=== PATIENT | female | born 1945 | race Caucasian/White ===

== ENCOUNTER 2019-05-21 06:04 | Inpatient (IN) | payer MEDICARE, OTHER, SELFPAY ==
[2019-05-13 12:43] VITALS: BMI 29.9
[2019-05-21] VITALS (16 sets, daily range): BP systolic 93–152; BP diastolic 56–75; PULSE 58–72; RESP 9–97; TEMP 36.2–36.7; O2SAT 11–100; BMI 29.9
--- NOTE | 2019-05-21 | DI.RAD.S_ITS ---
PROCEDURE: [id number] W PEL IF PERFORMED INDICATIONS: TOTAL ANTERIOR HIP TECHNIQUE: AP pelvis with lateral view(s) of the left hip(s). COMPARISON: None. FINDINGS: 4 spot fluoroscopic intraoperative images demonstrating expected alignment of left hip arthroplasty. Dictated by: Kenton Dumont M.D. on 05/21/2019 at 11:22 Approved by: Kenton Dumont M.D. on 05/21/2019 at 11:23
--- NOTE | 2019-05-21 06:50 | DI.RAD.S_ITS ---
PROCEDURE: XR HIP W PEL IF DONE LT 2V INDICATIONS: post operative total left hip TECHNIQUE: AP pelvis with lateral view(s) of the left hip(s). COMPARISON: [facility], , [id number] W PEL IF PERFORMED, 05/21/2019, 10:03. FINDINGS: Bones: No fractures or dislocations. Pelvic ring appears intact. No suspicious bony lesions. Soft tissues: The visualized bowel gas pattern is normal. No suspicious soft tissue calcifications. IMPRESSION: Expected postoperative appearance of left hip arthroplasty. Dictated by: Kenton Dumont M.D. on 05/21/2019 at 12:59 Approved by: Kenton Dumont M.D. on 05/21/2019 at 12:59
[2019-05-21] MEDS: LACTATED RINGERS 1,000 ML 42 ML IV ×2 (07:05→09:14)
[2019-05-21] MEDS: VANCOMYCIN 1,000 MG/200 ML PIGGYBACK 200 MG IV (07:06)
[2019-05-21] MEDS: PREGABALIN 75 MG CAPSULE PO (07:09)
[2019-05-21] MEDS: ACETAMINOPHEN 325 MG TABLET 975 MG PO ×3 (07:10→20:54)
--- NOTE | 2019-05-21 07:25 | P.OP_ITS ---
Operative Date/Time/Diagnoses Date of procedure: 05/21/19 Time of procedure: 07:52 Pre-op diagnosis: left hip OA Post-op diagnosis: same Procedure & Clinicians Procedure: Left total hip arthroplasty anterior approach Same procedure as scheduled: Yes Indications: The patient has had progressively worsening left hip pain with radiographic changes consistent with arthritis. Non-operative management has failed and the patient has requested total hip replacement. The risks, benefits and alternatives to surgery were discussed with the patient prior to proceeding. Risks discussed included, but were not limited to, failure to relieve pain, leg length discrepancy, dislocation, stiffness, infection, nerve damage, deep venous thrombosis, pulmonary embolism, stroke, coma, heart attack, permanent paralysis and , as well as the potential need for eventual revision of the prosthetic. Surgeon: Brie Piña Marketing Research Intern: Jessica Contreras Anesthesia Type: General and Spinal Operative Notes Findings: Severe left hip osteoarthritis, good stability, adequate bone Closure Type: primary Specimen(s): none sent Prosthetic devices, grafts, tissues, transplants, or devices: Piña and Nephew 48 R3 cup, anthology standard offset size 3, 32 by -3, one screw 15 mm Estimated Blood Loss (mL): 250 Blood products transfused: none Procedure in detail: The patient was brought to the operating room. Patient was carefully positioned in the supine position. Time-out was performed and antibiotics were given. Anesthesia was induced. She was positioned in the on the table in order to allow hyperextension of the hip. The left lower extremity was prepped and draped in a standard sterile fashion. An anterior left hip incision was made 1 fingerbreadth lateral to the anterior superior iliac spine and extended distally towards the greater trochanter. Dissection was carried out through skin and subcutaneous tissues. The skin and subcutaneous tissues were carefully injected with Lidocaine with epi. Superficial hemostasis was achieved. The fascia over the tensor fascia norma was defined and incised with a knife. Two Allis clamps were used to grasp the fascia. Tensor fascia norma was retracted laterally. A gelpi retractor was placed. Dissection was carried out down along the neck. The circumflex vessels were carefully identified and cauterized with the Aqua Mantis. There was good visualization of the femoral neck. A Cobra was placed superior to the neck and the gluteus fibers were carefully stripped from that superior aspect of the capsule. A 2nd retractor was placed along the inferior aspect of the neck. The rectus insertion along the capsule was partially released. A 3rd retractor that was then gently placed over the rim of the acetabulum under the rectus. Capsule was carefully incised and released from the intertrochanteric line circumferentially superior to the mid sagittal line and inferiorly to the mid sagittal line until the lesser trochanter was palpable. A tag stitch was placed both in the superior and inferior limb of the capsular insertion. Along the acetabulum capsule was also released up to the mid sagittal 12:00 position. A portion of the labrum was resected. A saw was used to perform an osteotomy at the level of the intertrochanteric line and the junction of the superior femoral neck leaving approximately 1 finger breath of residual inferior neck above the lesser trochanter. A 2nd cut was made along the femoral neck at the base of the head and a napkin ring of neck was removed. Corkscrew was placed in the femoral head and the head was removed without difficulty. Retractors were then repositioned around the acetabulum. Residual labrum was resected and additional osteophytes were removed. A reamer that was 4 mm below the templated size was placed by hand in the acetabulum and it was reamed to centralize the acetabulum. It was then reamed up to 2 under the templated size and fluoroscopy was brought in to confirm the position of the reaming and depth of reaming. I reamed 1 under the anticipated size. She had dense bone. A trial cup was placed and noted that it was appropriately sized and fluoroscopy confirmed position and depth. The component was open and inserted without difficulty fluoroscopic imaging was used to confirm that the cup had been adequately seated and was well positioned. The cup was meticulously tested and noted to be stable. It was further stabilized with a single screw. Neutral poly liner was placed. The cup was tested and noted to be stable. Attention was then directed to the femur. The femur was gently hyperextended additional capsular release was performed as needed in order to allow adequate visualization of the proximal femur with elevation of the femur. Patient was placed in a hyperextended slightly adducted position with maximum external rotation. Box osteotome was used to check for any residual neck as well as sclerotic bone along the trochanter. [place] pepper was placed in the femur. Additional broaching was performed. Canal finder was used to determine the alignment of the canal and position. Size 1 broach was placed. The canal was then appropriately broached up to the templated size as long as there was adequate stability of the broach and serial advancement of the broach without excessive impingement. Specific attention was directed at avoiding varus attempting to direct the distal aspect of the broach more anteriorly and avoiding excessive anteversion. Trial reduction showed acceptable range of motion, good stability, no posterior impingement, adventist of leg length and appropriate lateral shuck. I also hyperflexed the hip and checked that there was no impingement anteriorly and there was good stability with flexion, adduction and internal rotation. Final neutral poly was placed without difficulty. Marcaine and Exparel were injected. The stem was placed without difficulty. Repeat trial reduction and x-ray showed acceptable overall position, length, and no evidence of the femoral fracture. Final head was placed. Wound was meticulously irrigated with normal saline. The hip was reduced and additional Exparel and Marcaine were injected. The capsule was closed with interrupted nonabsorbable sutures. The fascia of the tensor was closed with interrupted and running Vicryl. No drain was placed. Any tensor fascia norma muscle that appeared to be contused or injured which was a minimal amount was carefully resected. Capsule around the tensor was injected with Exparel and Marcaine. The skin was closed with barbed stitches for the subcutaneous tissue and skin. We also used surgical glue. The wound was dressed sterilely. Brief Betadine soak was also used and was meticulously irrigated with normal saline. Patient was transferred to recovery room in satisfactory con dition. Complications: none Post-operative Condition: stable Disposition: Acute Care Plan for aftercare: The patient will be maintained on a standard total hip replacement protocol with weight bearing as tolerated and anterior hip precautions. The patient will receive Aspirin and sequential compression devices for DVT prophylaxis. The patient will be discharged home when safe for the home environment.
--- NOTE | 2019-05-21 07:25 | PM.PREOP ---
Pre-operative Note Interval Note History & Physical reviewed/Exam performed by Physician: Yes Changes to H&P: No
[2019-05-21] MEDS: CELECOXIB 200 MG CAPSULE PO (07:34)
[2019-05-21] MEDS: FAMOTIDINE 20 MG/50 ML PIGGYBACK 200 MG IV (07:34)
[2019-05-21] MEDS: CEFAZOLIN 2 GM/100 ML FROZ.PIGGY IV ×2 (07:57→16:21)
[2019-05-21] MEDS: TRANEXAMIC ACID 1,000 MG VIAL 1000 MG INJ ×2 (08:20→10:25)
--- NOTE | 2019-05-21 08:38 | SUR.OPER ---
Head on pillow. Supine on hana table with bilateral legs in padded hana table boots attached to the hana table armature, bilateral leg secured in traction. . leftarm padded and across chest, secured with tape over sheet, right arm secured on padded armboard at less than 90 degree abduction
[2019-05-21] MEDS: BUPIVACAINE 0.25% W/ EPI 30 ML VIAL 60 ML INJ (08:58)
[2019-05-21] MEDS: BUPIVACAINE LIPOSOME 266 MG/20 ML VIAL INJ (08:58)
[2019-05-21] MEDS: SODIUM CHLORIDE IRRIG SOLUTION 250 ML, POVIDONE-IODINE SPONGE STICKS 1 APPLIC IRR (09:01)
--- NOTE | 2019-05-21 12:29 | SUR.PHASEI ---
Pt transferred to room 228. Updated given to Tomer Gonzalez. VSS, denies pain.
--- NOTE | 2019-05-21 13:16 | PC.NURSE ---
Pt to room 218 via bed from PACU. Pt is awake, alert, and oriented x 3. Denies pain or nausea. Ate her whole lunch during her admission process. Pt oriented to room, call light, tv controls and bed controls. Reminded Pt not to get up without assistance. Bed alarm on for safety. Pt denies needs at this time.
[2019-05-21] MEDS: LACTATED RINGERS 1,000 ML 125 ML IV (13:18)
[2019-05-21] MEDS: INFLUENZA VACCINE 0.5 ML SYRINGE IM (16:33)
--- NOTE | 2019-05-21 16:50 | PT.IIE ---
Current Diagnoses Unilateral primary osteoarthritis, left hip (05/21/19) Surgery Performed Operation Date: 05/21/19 07:45 Actual Procedures p Total Hip Arthroplasty/Anterior Approach(Left) - Brie Piña MD Surgical History (Last Updated 05/13/19 @ 13:18 by Kelly Macedo RN) History of total right hip arthroplasty (Acute 06/18/07) Hx of bilateral cataract extraction (Acute) Medical History (Last Updated 05/13/19 @ 13:33 by Kelly Macedo RN) BCC (basal cell carcinoma) (Acute) Calcinosis (Acute) CREST syndrome (Acute) Depression (Acute) Easy bruisability (Acute) Former smoker (Acute) Fragile skin (Acute) Fuchs' corneal dystrophy (Acute) Raynaud's phenomenon (Acute) Rotator cuff tear, left (Acute) Vaginitis (Acute) Physical Therapy Inpatient Evaluation/Re-Eval M1 PT/OT-IP Prior Functional Status Start: 05/21/19 16:19 Freq: NEEDED Status: Active Protocol: Document 05/21/19 16:19 NFW (Rec: 05/21/19 16:50 NFW [id number]) Medical Review Prior Functional Status Medical History Reviewed Yes Communication Pleasant, answered all questions appropriately. A little groggy but able to proceed with treatment. Mobility and Gait Prior to surgery patient ambulated with a walking stick on the left side. Overall walking distance was limited to walking as needed. Activities of Daily Living and IADL's Patient required assistance in dressing with socks, underwear and tying shoes prior to surgery. She does have a sock assist and knows how to use. In the shower she would need some assist with washing the bottom of her feet . Prior Functional Level (Other details) Patient was able to cook, do laundry and drive as needed. Social History Household Members spouse Living Arrangements House Number of Floors (Floors) One Floor Number of Stairs To Enter/Railing? Patient has three series of 2- step stairs to enter her home (no handrails) or patient can walk on a gravel path around the house to the back door. Within the home she has two steps down to get to the master bedroom and no handrails. Home Environment High Toilet,Walk in Shower Home Equipment Front Wheel Walker,Sock Aid, Grab Bars Near Toilet,Grab Bars In Shower Employment Status Retired M2 PT-IP Current Condition Start: 05/21/19 16:19 Freq: NEEDED Status: Active Protocol: Document 05/21/19 16:19 NFW (Rec: 05/21/19 16:50 NFW [id number]) Physical Therapy Current Condition Current Condition Evaluation Date 05/21/19 Treatment Diagnosis s/p Left BRIAN, anterior approach secondary to OA Precautions Anterior Hip Precautions No Hip Extension,No Hip External Rotation Weight Bearing Status Weight Bearing Status Full Weight Bearing M3 PT-IP Subjective Start: 05/21/19 16:19 Freq: NEEDED Status: Active Protocol: Document 05/21/19 16:19 NFW (Rec: 05/21/19 16:50 NFW [id number]) Subjective Physical Therapy Visit Type Type Initial Evaluation Visit Start Time 15:20 Visit Stop Time 16:18 Total Visit Minutes 58 Notes and best friend present during treatment. Number of SAP DIRECTOR Visits 0 Physical Therapy Visit Comments Patient Comments Anxious to start therapy. Has need to use the restroom. Patient Goals Return home with . Therapy Pain Assessment Pain When Pain Assessed After Treatment M4 PT-IP Mobility and Gait Start: 05/21/19 16:19 Freq: NEEDED Status: Active Protocol: Document 05/21/19 16:19 NFW (Rec: 05/21/19 16:50 NF [id number]) PT-Bed Mobility Assessment Supine to Sit Supine to Sit Standby Assistance,1 Person Assistance Sit to Supine Sit to Supine Minimal Assistance,1 Person Assistance Scooting Scooting to Edge of Bed Independent Scooting Up and Down in Bed Independent PT-Transfer Assessment Sit to and From Stand Sit to and from Stand Contact Guard Assistance,1 Person Assistance Equipment Transfer Assistive Device Gait Belt,Front Wheeled Walker Orthotic/Prosthetic Devices or Brace: No Transfers Transfer Destination Bed,Chair,Toilet Transfer Ability Level of Assist Minimal Assistance,1 Person Assistance Comments Mobility Comments Patient using good form with sitting up from bed and scooting to EOB. In returning to bed used gait belt around left foot, the other end patient held in left hand to assist in lifting leg. Cuing required for proper technique between sitting and standing. Overall, performed very well once instruction provided. Gait Assessment Gait Gait Assistance Required: Contact Guard Assist,1 Person Assist Distance (Feet) 200 Able to Maintain Weight Bearing Status Yes During Gait Assistive Devices Assistive Device Gait Belt,Front Wheeled Walker Orthotic/Prosthetic Devices or Brace: Yes Gait Deviations General Gait Pattern Decreased Stride Length,Flexed Trunk,Step-to Gait Factors Limiting Gait Function Factors Limiting Gait Function Abnormal Tonal Influences, Decreased Activity Tolerance, Decreased Sensation,Decreased Strength,Limited Range of Motion,Pain,Poor Balance Comments Gait Comments Patient initially ambulated with step to gait but with cuing able to advance with normal step through gait pattern. Also, able to correct overall posture in ambulation. Trial of use of SPC which could be used when patient needs to go up and down the two steps in her house with or post. Overall, did well with SPC for short distances. M5 PT-IP Objective Assessments Start: 05/21/19 16:19 Freq: NEEDED Status: Active Protocol: Document 05/21/19 16:19 NFW (Rec: 05/21/19 16:50 NF [id number]) Orientation Orientation/Cognition Level of Alertness Alert Orientation Name,Birthday,Date,Place, Situation Language Function Ability No Deficits Noted Safety Awareness Understands Safety Issues Memory Description No Deficits Noted Strength Upper Extremity Strength Assessment Within Functional Limits Muscle Tone Muscle Tone WNL Yes M6 PT-IP Treatment Start: 05/21/19 16:19 Freq: NEEDED Status: Active Protocol: Document 05/21/19 16:19 NFW (Rec: 05/21/19 16:50 NF [id number]) Physical Therapy Treatment Exercises Exercises Ankle Pumps,Gluteal Sets,Quad Sets,Heel Slides Education Education Provided Precautions,Post-Op Packet Other Treatments Other Treatment Performed Walked to bathroom, back out to sink, able to perform some grooming with equal WB LE. M7 PT-IP Assessment and Plan Start: 05/21/19 16:19 Freq: NEEDED Status: Active Protocol: Document 05/21/19 16:19 NFW (Rec: 05/21/19 16:50 NF [id number]) PT Summary Assessment and Plan Potential Rehabilitation Potential Excellent Status of Condition at Evaluation Evolving Summary Impairments Pain,ROM,Strength,Balance, Coordination,Sensation,Tone, Bed Mobility,Transfers,Gait, Activity Tolerance Progress Towards Goals Progressing Toward Goals Assessment Summary Patient s/p anterior BRIAN on the left with some residual discomfort around the left hip . Presenting with functional strength LLE and ability to ambulate 200' with FWW. Requires cuing for proper gait pattern and could benefit from some balance exercise or testing. Patient moves quickly and needs pacing. Goals Bed Mobility Goal Independent Transfer Goal Independent Gait Goal Independent,Front Wheel Walker Gait Distance 500 Other Goals Ability to safely ascend and descend two steps either with walking stick and or SPC and . Days to Meet Goals 2 Frequency of Treatment Frequency Of Treatment Twice a Day Treatment Plan Physical Therapy Treatment Plan Bed Mobility Training,Transfer Training,Gait Training, Therapeutic Exercise,Balance Retraining,Post Op Education, Discharge Planning, Coordination Retraining Other Recommendations and Next Treatment Steps with SPC? Focus Recommendations To Nursing Amount of Assist Needed 1 Person Assist Discharge Recommendations PT Discharge Recommendations Home with Assistance
[2019-05-21] MEDS: DOCUSATE 100 MG CAPSULE PO (20:54)
[2019-05-21] MEDS: ASPIRIN EC 81 MG TABLET PO (20:54)
[2019-05-22] MEDS: CEFAZOLIN 2 GM/100 ML FROZ.PIGGY IV (00:01)
[2019-05-22 05:25] VITALS: BP 128/71; PULSE 65; RESP 18; TEMP 36.5; O2SAT 98
--- NOTE | 2019-05-22 06:17 | PC.NURSE ---
Pt reports pain in left hip tolerable overnight rates 3-4/10. CMS intact. Pt does report left thigh muscle feels heavy. Left extremity warm, <2 sec capillary refill, PP present. No tenderness to calf when lightly palpated. Denies need for pain medication. Ambu to BR mult times during night, stable with SBA. Tolerating PO intake overnight, IVF stopped per order. Anticipate discharge today.
[2019-05-22 06:18] LABS: Hematocrit 33.9 % (36-46); Hemoglobin 11.3 g/dL (12.0-16.0)
[2019-05-22 08:05] VITALS: BP 115/65; PULSE 60; RESP 16; TEMP 36.4; O2SAT 96
--- NOTE | 2019-05-22 08:42 | PM.DS.1 ---
History of Present Illness History of Present Illness Date Patient Seen: 05/22/19 Time Patient Seen: 08:42 Chief complaint: [id number] Narrative: Hospital day 2, postop day 1 following left anterior total hip arthroplasty by Dr. Piña. Patient is a main stable postoperatively. Patient doing well. Taking only Tylenol for pain. She has been up and ambulating to bathroom. Did work with physical therapy yesterday who felt he was stable for home. She is scheduled to go to [facility]. She is a [facility] patient. Discharge Providers Provider Date of admission: 05/21/19 06:04 Discharge Date: 05/22/19 Primary care physician: Lauryn Hernandez MD Consults: 05/21/19 06:50 Consult to Anesthesiology Routine Comment: Consulting Provider: Anesthesiologist Reason for consultation: Regional block for post operative pain control 05/21/19 12:31 Consult to Discharge Planning Routine Comment: Consult to Physical Therapy Evaluate & Treat Comment: Physician Instructions: post op BRIAN protocol Consult to Respiratory Therapy Evaluate & Treat Comment: Physician Instructions: Evaluate and treat Discharge provider: Rogelio Ferreira PA-C Summary Hospital Course Discharge Diagnosis: Status post left anterior total hip arthroplasty Hospital Course: Patient brought to hospital on 05/21/2019 for above noted surgery. She remained stable postoperatively. Progressed well with physical therapy. Ready for discharge home on postop day 1. Status at Discharge Cognitive/behavioral status at discharge: oriented Functional status at discharge: uses cane/walker Overall status at discharge: patient is progressing back to baseline Time Spent with Patient Time spent: Less than 30 minutes Exam Vital Signs (past 8 hours): - 05/22/19 05:25 Temperature 97.7 F Pulse Rate 65 Respiratory Rate 18 Blood Pressure 128/71 Pulse Oximetry 98 Oxygen Delivery Method Room Air Oxygen Flow Rate 0 Narrative Exam Narrative: Alert, oriented no acute distress sitting in bed. Legs. Aquacel dressing to left anterior hip is dry without drainage or inflammation. No calf pain or swelling. Pulses symmetrical. Objective Labs Result Diagrams: 05/22/19 05:50 Labs: Laboratory Results - last 24 hr 05/22/19 05:50 Hgb 11.3 L Hct 33.9 L Discharge Plan Discharge Plan Patient Disposition: Home Discharge comment: Discharged home after cleared by PT. She is a [facility] patient and has a prescription for oxycodone at home. She is scheduled go to [facility]. Anterior total hip arthroplasty precautions. Patient to take aspirin 81 mg 1 b.i.d. times 30 days postop. Discharge Med Rec/Prescriptions Prescriptions: New acetaminophen 325 mg Tablet 975 mg PO TID Qty: 30 RF: 0 aspirin 81 mg Tablet,Delayed Release (Dr/Ec) 81 mg PO BID Qty: 60 RF: 0 Continued citalopram 20 mg Tablet 10 mg PO DAILY RF: 0 estradiol 0.01 % (0.1 mg/gram) Cream 2 g VAGINAL DAILY RF: 0 naproxen sodium [Aleve] 220 mg Capsule 440 mg PO BID-TID PRN (Reason: pain) RF: 0 Follow up/Referrals: Lauryn Hernandez MD [Primary Care Provider] - Provider Discharge Instructions Diet: Diet as Tolerated Activity: Ambulate as tolerated. Use walker as needed. Anterior total hip arthroplasty protocol x6 weeks postop. Cold/Heat Therapy: Cold pack to left hip as needed. Skin/Wound/Dressing Care Report to your healthcare provider any signs of infection, such as:: chills, fever, night sweats, increased pain, unusual drainage and unusual redness Dressing: Keep Aquacel dressing in place until postop visit. Visit Report/Discharge Packet Instructions: DI for Hip Replacement Discharge Data Primary Care Provider: Lauryn Hernandez Quality VTE Deep Vein Thrombosis/Pulmonary Embolism Present on Admission: No
[2019-05-22] MEDS: CITALOPRAM 20 MG TABLET 10 MG PO (09:01)
[2019-05-22] MEDS: DOCUSATE 100 MG CAPSULE PO (09:01)
[2019-05-22] MEDS: ASPIRIN EC 81 MG TABLET PO (09:02)
[2019-05-22] MEDS: ACETAMINOPHEN 325 MG TABLET 975 MG PO (09:02)
--- NOTE | 2019-05-22 10:50 | PT.IPTN ---
Current Diagnoses Unilateral primary osteoarthritis, left hip (05/21/19) Surgery Performed Operation Date: 05/21/19 07:45 Actual Procedures p Total Hip Arthroplasty/Anterior Approach(Left) - Brie Piña MD Physical Therapy Treatment Note M2 PT-IP Current Condition Start: 05/21/19 16:19 Freq: NEEDED Status: Active Protocol: Document 05/21/19 16:19 NFW (Rec: 05/21/19 16:50 NFW [id number]) Physical Therapy Current Condition Current Condition Evaluation Date 05/21/19 Treatment Diagnosis s/p Left BRIAN, anterior approach secondary to OA Precautions Anterior Hip Precautions No Hip Extension,No Hip External Rotation Weight Bearing Status Weight Bearing Status Full Weight Bearing M3 PT-IP Subjective Start: 05/21/19 16:19 Freq: NEEDED Status: Active Protocol: Document 05/22/19 10:50 GGD (Rec: 05/22/19 12:09 GGD [id number]) Subjective Physical Therapy Visit Type Type Treatment Note Visit Start Time 10:15 Visit Stop Time 10:50 Total Visit Minutes 35 Number of DIRECTOR OF MEDICAL REVIEW Visits 1 Physical Therapy Visit Comments Patient Comments Pt willing to work with therapy. Therapy Pain Assessment Pain When Pain Assessed During Mobility Pain Present Pain Present Pain Reported Location Left Lower Leg Intensity 1 M4 PT-IP Mobility and Gait Start: 05/21/19 16:19 Freq: NEEDED Status: Active Protocol: Document 05/22/19 10:50 GGD (Rec: 05/22/19 12:09 GGD [id number]) PT-Bed Mobility Assessment Supine to Sit Supine to Sit Standby Assistance,1 Person Assistance Scooting Scooting to Edge of Bed Independent PT-Transfer Assessment Sit to and From Stand Sit to and from Stand Contact Guard Assistance,1 Person Assistance Equipment Transfer Assistive Device Gait Belt,Front Wheeled Walker Orthotic/Prosthetic Devices or Brace: No Transfers Transfer Destination Chair,Wheelchair Transfer Ability Level of Assist Contact Guard Assistance,1 Person Assistance Gait Assessment Gait Gait Assistance Required: Standby Assistance,Contact Guard Assist,1 Person Assist Distance (Feet) 720 Able to Maintain Weight Bearing Status Yes During Gait Assistive Devices Assistive Device Gait Belt,Front Wheeled Walker Orthotic/Prosthetic Devices or Brace: Yes Gait Deviations General Gait Pattern Decreased Stride Length,Flexed Trunk,Step-to Gait Factors Limiting Gait Function Factors Limiting Gait Function Abnormal Tonal Influences, Decreased Activity Tolerance, Decreased Sensation,Decreased Strength,Limited Range of Motion,Pain,Poor Balance Stair Climbing Assessment Evaluation Level of Assist On Stairs Contact Guard Assistance,1 Person Assistance Devices Stair Climbing Assistive Devices Straight Cane Technique/Endurance Stair Climbing Direction Ascend and Descend Stair Climbing Technique Step to Step Number of Steps Climbed 3 Stair Climbing Set # Repetitions (reps) 1 M5 PT-IP Objective Assessments Start: 05/21/19 16:19 Freq: NEEDED Status: Active Protocol: Document 05/21/19 16:19 NFW (Rec: 05/21/19 16:50 NF [id number]) Orientation Orientation/Cognition Level of Alertness Alert Orientation Name,Birthday,Date,Place, Situation Language Function Ability No Deficits Noted Safety Awareness Understands Safety Issues Memory Description No Deficits Noted Strength Upper Extremity Strength Assessment Within Functional Limits Muscle Tone Muscle Tone WNL Yes M6 PT-IP Treatment Start: 05/21/19 16:19 Freq: NEEDED Status: Active Protocol: Document 05/22/19 10:50 GGD (Rec: 05/22/19 12:09 GGD [id number]) Physical Therapy Treatment Exercises Exercises Ankle Pumps,Gluteal Sets,Quad Sets,Heel Slides Education Education Provided Precautions M7 PT-IP Assessment and Plan Start: 05/21/19 16:19 Freq: NEEDED Status: Active Protocol: Document 05/22/19 10:50 GGD (Rec: 05/22/19 12:09 GGD [id number]) PT Summary Assessment and Plan Summary Assessment Summary Pt improving with mobility. She was able to progress gait distance. She was safe and stable with gait. Frequency of Treatment Frequency Of Treatment Twice a Day Treatment Plan Physical Therapy Treatment Plan Bed Mobility Training,Transfer Training,Gait Training, Therapeutic Exercise,Balance Retraining,Post Op Education, Discharge Planning, Coordination Retraining Recommendations To Nursing Amount of Assist Needed 1 Person Assist Discharge Recommendations PT Discharge Recommendations Home with Assistance
--- NOTE | 2019-05-22 12:59 | PC.NURSE ---
Pt dressed and ready for discharge home with Spouse [place]. Went over d/c instructions with Pt and Spouse-discussed d/c meds, time of last dose, reviewed stroke education, follow up, reminded no driving while on narcotics and encouraged Pt to drink plenty of fluids to prevent constipation or dehydration. Pt denies further questions and was taken out via w/c by [employer] with Spouse and all belongings.
== END 2019-05-22 13:01 | disposition home or self-care (01) | DRG 470 ==
PROVIDERS: Admitting Provider Orthopaedic Surgery; PCP Family Medicine; Visit Provider Orthopaedic Surgery
PROC: 0SRB02Z Replacement of Left Hip Joint with Metal on Polyethylene Synthetic Substitute, Open Approach (ICD-10-PCS; CPT 27130; principal; 2019-05-21 07:45)
DX: M16.12 Unilateral primary osteoarthritis, left hip (principal); M34.1 CR(E)ST syndrome; Z96.641 Presence of right artificial hip joint; Z87.891 Personal history of nicotine dependence
CPT/HCPCS: 36415; 73502; 73503; 76000; 85014; 85018; 90471; 90656; 97110; 97116; 97161; 97530; C1776; C9290; J0690; J1100; J2250; J2274; J2405; J2704; J3010; Q2038